=== PATIENT | male | born 2000 | race Caucasian/White ===

== ENCOUNTER 2023-04-25 00:21 | Emergency (ER) | payer BC ==
[~2023-04-25] VITALS: Ht 182.9 cm; Wt 82.0 kg
[2023-04-25 00:50] VITALS: BP 121/72; RESP 18; TEMP 98.1; O2SAT 96
[2023-04-25 00:52] VITALS: PULSE 64
== END 2023-04-25 02:42 | disposition left against medical advice (07) ==
LOC: ER 01:19
DX: S61.215A Laceration without foreign body of left ring finger without damage to nail, initial encounter (principal); Z53.21 Procedure and treatment not carried out due to patient leaving prior to being seen by health care provider; X58.XXXA Exposure to other specified factors, initial encounter; Y93.89 Activity, other specified; Y92.89 Other specified places as the place of occurrence of the external cause; Y99.8 Other external cause status
CPT/HCPCS: 99281; Z7610

== ENCOUNTER 2023-04-25 07:26 | Emergency (ER) | payer BC ==
[~2023-04-25] VITALS: Ht 185.4 cm; Wt 77.0 kg
[2023-04-25 07:32] VITALS: TEMP 98.1; O2SAT 97
[2023-04-25] MEDS ORDERED: LIDOCAINE HCL/PF 1% 10 MG/ML 5ML VIAL INFIL ONE (10:15)
[2023-04-25] MEDS ORDERED: BACITRACIN ZINC OINT UDPKT TOP ONE (10:15)
[2023-04-25 12:09] VITALS: BP 125/70; PULSE 62; RESP 18
== END 2023-04-25 12:10 | disposition home or self-care (01) ==
LOC: ER 07:26
DX: S61.412A Laceration without foreign body of left hand, initial encounter (principal); W26.8XXA Contact with other sharp object(s), not elsewhere classified, initial encounter; Y93.89 Activity, other specified; Y92.89 Other specified places as the place of occurrence of the external cause; Y99.8 Other external cause status
CPT/HCPCS: 73130; 12001; 99283; J3490; Z7610 ×2